=== PATIENT | male | born 1970 | race Caucasian/White ===

== ENCOUNTER 2020-04-05 10:15 | Emergency (ER) | payer OTHER ==
[~2020-04-05] VITALS: Ht 172.7 cm; Wt 80.7 kg
[2020-04-05] MEDS ORDERED: BACTRIM DS TAB1 EACH PO (10:36)
[2020-04-05] MEDS ORDERED: KEFLEX500 M1 PO (10:36)
[2020-04-05 11:04] VITALS: BP 138/93
== END 2020-04-05 11:05 | disposition home or self-care (01) ==
LOC: ER 10:15
DX: L02.512 Cutaneous abscess of left hand (principal); L02.511 Cutaneous abscess of right hand; R42 Dizziness and giddiness; M25.551 Pain in right hip; F17.210 Nicotine dependence, cigarettes, uncomplicated